=== PATIENT | female | born 1990 | race Asian ===

== ENCOUNTER 2017-01-26 09:12 | Inpatient (IN) | payer SELFPAY ==
[~2017-01-26] VITALS: Ht 166 cm; Wt 70.3 kg
[2017-01-28] MEDS ORDERED: OXYTOCIN 10 UNITS/ML VIAL IM SCH (01:20)
[2017-01-28] MEDS ORDERED: METHYLERGONOVINE 0.2 MG/ML AMP IM PRN ×2 (01:20→21:50)
[2017-01-28] MEDS ORDERED: NALBUPHINE HYDROCHLORIDE 10 MG/ML VIAL IVP PRN (01:20)
[2017-01-28] MEDS ORDERED: CARBOPROST 250 MCG/ML AMP IM PRN (01:20)
[2017-01-28] MEDS ORDERED: PROMETHAZINE 25 MG/ML VIAL IVP PRN (01:20)
[2017-01-28] MEDS: LACTATED RINGERS 1,000 ML IV SCH ×2 (01:24→09:02)
[2017-01-28] MEDS ORDERED: MISOPROSTOL 25 MCG TAB ONE (01:33)
[2017-01-28 01:40] LABS: BASOPHILS # (AUTO) 0.1 K/uL (0.00-0.22); BASOPHILS % (AUTO) 0.7 % (0.0-2.0); EOSINOPHILS # (AUTO) 0.2 K/uL (0-0.4); EOSINOPHILS % (AUTO) 2.1 % (0.0-4.0); HEMATOCRIT 31.7 % (36-48); HEMOGLOBIN 9.8 g/dL (12.0-16.0); LYMPHOCYTES # (AUTO) 1.9 K/uL (2.5-16.5); LYMPHOCYTES % (AUTO) 25.7 % (20.5-51.1); MEAN CORPUSCULAR HEMOGLOBIN 26 pg (27-31); MEAN CORPUSCULAR HGB CONC 31 g/dL (33-37); MEAN CORPUSCULAR VOLUME 84 fL (80-94); MONOCYTES # (AUTO) 0.6 K/uL (0.8-1.0); MONOCYTES % (AUTO) 8.6 % (1.7-9.3); NEUTROPHILS # (AUTO) 4.6 K/uL (1.8-7.7); NEUTROPHILS % (AUTO) 62.9 % (42.2-75.2); PLATELET COUNT (AUTO) 261 K/uL (140-450); RED BLOOD CELL COUNT(AUTO) 3.78 MIL/uL (4.20-5.40); RED CELL DISTRIBUTION WIDTH 14.1 % (11.6-13.7); WHITE BLOOD COUNT (AUTO) 7.4 K/uL (4.8-10.8)
[2017-01-28] MEDS ORDERED: OXYTOCIN 20 UNITS/LR PREMIX 1,000 ML IV SCH (02:00)
[2017-01-28 02:28] LABS: HIV RAPID SCREEN NON-REACTIVE (NON REACTIV)
[2017-01-28] MEDS ORDERED: PREN-546 PO (02:31)
[2017-01-28] MEDS ORDERED: FERR-193 PO (02:31)
[2017-01-28 02:35] VITALS: BP 125/78
[2017-01-28 04:15] LABS: APPEARANCE,URINE SL CLOUDY (CLEAR); BILIRUBIN,URINE NEGATIVE (NEGATIVE); BLOOD, URINE NEGATIVE (NEGATIVE); COLOR,URINE YELLOW (YELLOW); LEUKOCYTE ESTERASE ,URINE TRACE (NEGATIVE); NITRITE, URINE NEGATIVE (NEGATIVE); PH,URINE 6.5 (5.0-9.0); PROTEIN,URINE NEGATIVE (NEGATIVE); UGLUCOSE NEGATIVE (NEGATIVE); UROBILINOGEN,URINE 0.2 EU/dL (0.2 - 1)
[2017-01-28 04:29] LABS: BACTERIA,URINE 3+ /HPF (None Seen); RBC,URINE 0-5 (RARE) /HPF (0-5); SQUAMOUS EPITHELIAL CELL,UR 0-3 (FEW) /LPF (0-3 (FEW))
[2017-01-28] MEDS ORDERED: OXYTOCIN 20 UNITS/LR PREMIX 1,000 ML IV ONE (06:02)
[2017-01-28] MEDS ORDERED: ROPIVACAINE 0.2%/NS PREMIX 250 ML EPI ONE (08:43)
[2017-01-28] MEDS ORDERED: ROPIVACAINE 0.2%/NS PREMIX 250 ML EPI SCH (08:55)
--- NOTE | 2017-01-28 09:12 | NUR ---
PATIENT HAS BEEN SCREENED AND CATEGORIZED LOW NUTRITION RISK. PATIENT WILL BE SEEN WITHIN 7 DAYS OF ADMISSION. 02/04/[address] Addendum: 01/28/17 at [address] PATIENT HAS BEEN SCREENED AND CATEGORIZED LOW NUTRITION RISK. PATIENT WILL BE SEEN WITHIN 7 DAYS OF ADMISSION. 02/03/[address]
[2017-01-28] MEDS ORDERED: OXYTOCIN 10 UNITS/ML VIAL ONE (21:16)
[2017-01-28] MEDS ORDERED: WITCH HAZEL 40 PAD PACKAGE TP PRN (21:50)
[2017-01-28] MEDS ORDERED: oxyCODONE/APAP 5/325 MG 1 TAB TAB PO PRN (21:50)
[2017-01-28] MEDS ORDERED: OXYTOCIN 10 UNITS/ML VIAL IM PRN (21:50)
[2017-01-28] MEDS ORDERED: BENZOCAINE/MENTHOL 20%-0.5% 60 GM CAN TP PRN (21:50)
[2017-01-28] MEDS ORDERED: MEASLES, MUMPS, AND RUBELLA 1 VIAL SQVAC PRN (21:50)
[2017-01-28] MEDS ORDERED: TEMAZEPAM 15 MG CAP PO PRN (21:50)
[2017-01-28] MEDS ORDERED: IBUPROFEN 800 MG TAB ONE (22:00)
[2017-01-29] MEDS ORDERED: OXYTOCIN 20 UNITS/LR PREMIX 1,000 ML IV SCH (02:00)
[2017-01-29] MEDS: HYDROcodone/APAP 5/325 MG 1 TAB TAB PO PRN (05:51)
[2017-01-29 05:57] LABS: HEMATOCRIT 24.6 % (36-48); HEMOGLOBIN 8.3 g/dL (12.0-16.0)
[2017-01-29] MEDS: IBUPROFEN 800 MG TAB PO PRN (10:55)
[2017-01-29] MEDS ORDERED: DOCUSATE SOD/SENNA 50/8.6 MG 1 TAB PO SCH ×2 (21:00)
[2017-01-30] MEDS: IBUPROFEN 800 MG TAB PO PRN ×2 (00:58→08:28)
[2017-01-30 09:59] LABS: RAPID PLASMA REAGIN NON-REACTIVE (Non Reactiv)
[2017-01-30] MEDS ORDERED: IBUP-2213 PO (12:54)
[2017-01-30] MEDS: HYDROcodone/APAP 5/325 MG 1 TAB TAB PO PRN (13:08)
[2017-01-30] MEDS ORDERED: oxyCODONE/APAP 5/325 MG 1 TAB TAB ONE (20:14)
== END 2017-01-30 14:10 | disposition home or self-care (01) | DRG 775 ==
LOC: MLD 01-28 00:26 → MFCC 01-29 00:10
PROVIDERS: ADMIT Obstetrics & Gynecology; ATTEND Obstetrics & Gynecology
PROC: 10D07Z6 Extraction of Products of Conception, Vacuum, Via Natural or Artificial Opening (ICD-10-PCS; principal; 2017-01-28)
PROC: 10907ZC Drainage of Amniotic Fluid, Therapeutic from Products of Conception, Via Natural or Artificial Opening (ICD-10-PCS; 2017-01-28)
PROC: 0W8NXZZ Division of Female Perineum, External Approach (ICD-10-PCS; 2017-01-28)
PROC: 3E0P7GC Introduction of Other Therapeutic Substance into Female Reproductive, Via Natural or Artificial Opening (ICD-10-PCS; 2017-01-28)
PROC: 00HU33Z Insertion of Infusion Device into Spinal Canal, Percutaneous Approach (ICD-10-PCS; 2017-01-28)
PROC: 3E0R3CZ (ICD-10-PCS; 2017-01-28)
DX: O69.1XX0 Labor and delivery complicated by cord around neck, with compression, not applicable or unspecified (principal); Z3A.40 40 weeks gestation of pregnancy; Z37.0 Single live birth; Z28.21 Immunization not carried out because of patient refusal
CPT/HCPCS: 36415; 51702; 59200; 81001; 85018; 85025; 86592; 86886; 86900; 86901; 87086; J2590; J2795; J7120